=== PATIENT | male | born 1935 | race Asian ===

== ENCOUNTER 2018-09-27 14:17 | Emergency (ER) | payer OTHER, MEDICAID ==
[~2018-09-27] VITALS: Ht 152.4 cm; Wt 59.0 kg
[2018-09-27 14:38] VITALS: Ht 152.4 cm; Wt 59.0 kg
[2018-09-27 18:16] VITALS: BP 108/57
== END 2018-09-27 18:16 | disposition home or self-care (01) ==
LOC: ED 14:17
DX: T83.098A Other mechanical complication of other urinary catheter, initial encounter (principal); I10 Essential (primary) hypertension; Z98.890 Other specified postprocedural states; Y92.89 Other specified places as the place of occurrence of the external cause